=== PATIENT | female | born 1985 | race Caucasian/White ===

== ENCOUNTER 2025-10-05 18:52 | Emergency (ER) | payer SELFPAY ==
[2025-10-05 18:55] VITALS: BP 150/81; PULSE 104; RESP 18; TEMP 37.3; O2SAT 96; BMI 40.6
--- NOTE | 2025-10-05 19:01 | XRR_ITS ---
PROCEDURE INFORMATION: Exam: XR Chest Exam date and time: 10/05/2025 7:02 PM Age: 39 years old Clinical indication: Wheezing; Additional info: Wheezing, allergic rxn TECHNIQUE: Imaging protocol: Radiologic exam of the chest. Views: 1 view. COMPARISON: No relevant prior studies available. FINDINGS: Lungs: Unremarkable. No consolidation. Pleural spaces: Unremarkable. No pleural effusion. No pneumothorax. Heart/Mediastinum: Unremarkable. No cardiomegaly. Bones/joints: Unremarkable. XR/XR chest 1V portable [id number] IMPRESSION: No acute findings.
[2025-10-05] MEDS: diphenhydrAMINE 50 mg/mL SDV 1mL IM (19:06)
--- NOTE | 2025-10-05 19:43 | PC.NURSE ---
Pt is in custody of [facility]. Sent a syringe and needle with 0.3 mg of epinephrine with the derrick car operator in case of another allergic reaction happens before the long-term can belt picker the patient's prescription in the morning.
--- NOTE | 2025-10-06 00:29 | ED_ITS ---
HPI - Allergic Reaction General: Chief complaint: Allergic Reaction Stated complaint: Allergic reaction Time Seen by Provider: 10/05/25 18:58 Source: patient Mode of arrival: EMS Limitations: no limitations History of Present Illness: HPI narrative: Patient is a 39-year-old female presented emergency department from skilled nursing due to allergic reaction. States that she ate tomatoes, thinks that she is allergic and she started to have acute wheezing, sensation of throat closure, and tongue swelling. States that she has had anaphylaxis in the past and has required use of epinephrine pen, she did not use this today. EMS arrived at skilled nursing, states they gave her albuterol and this greatly improved her condition. Patient states that she still feels a little stridorous, and has some mild tongue swelling but overall feels a lot better and wants to go back to skilled nursing as she had a visit scheduled. She does not report any hives, abdominal pain, or nausea/vomiting. Minimally tachycardic at this time, blood pressure mildly elevated but otherwise no other signs of shock. Patient denies wanting epinephrine. MD complaint: allergic reaction Onset (ago): minute(s) Exposure: food Associated symptoms: Reports tongue swelling; Deny abdominal pain, nausea or vomiting Severity: similar to previous episodes Treatment prior to arrival: bronchodilator Previous Allergic Reaction History: anaphylaxis Related Data Previous Rx's ?Medication ?Instructions ?Recorded epinephrine 0.3 mg/0.3 mL 0.3 mg (0.3 mL) IM Q10M PRN 10/05/25 injection, auto-injector (EpiPen) anaphylaxis #1 ea Review of Systems General: Reports: 10 or more systems reviewed and unremarkable except in HPI and below Const: Denies: fever(s), chills or fatigue Eyes: Denies: change in vision ENMT: Denies: throat pain, ear or mastoid pain or nasal discharge Card: Denies: chest pain, palpitations, swelling of feet/ankles or lightheadedness Resp: Reports: wheezing and stridor; Denies: dyspnea or productive cough GI: Denies: abdominal pain, nausea, vomiting, diarrhea or constipation : Denies: flank pain, difficulty voiding, dysuria or urinary frequency Musc: Denies: neck pain, back pain or joint pain Skin/Breast: Denies: rash Neuro: Denies: headache(s), numbness in extremities or weakness in extremities All/Imm: Reports: throat swelling, tongue swelling and acute wheezing Physical Exam Const: COMMON NORMALS: no acute distress, patient oriented x3 and no limitations GENERAL APPEARANCE: cooperative, comfortable and well developed ORIENTATION/CONSCIOUSNESS: Yes awake, Yes oriented to person, Yes oriented to place and Yes oriented to time HENMT: COMMON NORMALS: normocephalic, atraumatic and hearing grossly normal bilaterally HEAD & SCALP: normocephalic and atraumatic OTHER: Mild tongue swelling, no posterior oropharyngeal swelling. Airway patent. Eye: COMMON NORMALS: Equal, round and reactive pupils present, EOMs intact bilaterally and conjunctivae normal CONJUNCTIVA: Yes conjunctivae normal PUPIL: Yes Equal, round and reactive pupils present Neck/C-Spine: COMMON NORMALS: full ROM, supple and no JVD Resp: COMMON NORMALS: normal respiratory effort, No retractions, No use of accessory muscles and clear to auscultation bilaterally AUSCULTATION: clear to auscultation bilaterally OTHER: Mild diffuse wheezing, no stridor. No active respiratory distress. Cardio: COMMON NORMALS: no JVD, regular rhythm, No clicks present (Cardio), No murmurs present (Cardio) and No rub (Cardio) RATE: tachycardic RHYTHM: regular rhythm GI: COMMON NORMALS: Normal to inspection, nondistended, normoactive bowel sounds present, Soft to palpation and non-tender AUSCULTATION: Yes normoactive bowel sounds PALPATION: Yes Soft to palpation RECTAL EXAM: deferred Extremity: COMMON NORMALS: normal to inspection, full ROM and capillary refill normal Neuro: COMMON NORMALS: patient oriented x3, moves all extremities, no focal motor deficits and no sensory deficits noted SENSORIUM/ORIENTATION: Yes oriented to person, Yes oriented to place and Yes oriented to time Skin: COMMON NORMALS: no rashes or lesions noted GENERAL SKIN EXAM: no rashes or lesions noted Course Vital Signs: Vital signs: Vital Signs Temperature 99.1 F 10/05/25 18:55 Pulse Rate 104 H 10/05/25 18:55 Respiratory Rate 18 10/05/25 18:55 Blood Pressure 150/81 10/05/25 18:55 Pulse Oximetry 96 10/05/25 18:55 Oxygen Delivery Me thod Room Air 10/05/25 18:55 MDM - Allergic Reaction Medical Decision Making Patient presented from skilled nursing by EMS for concerns of anaphylactic reaction, of which she has similar presentation. Her initial symptoms were tongue swelling, throat swelling, wheezing and stridor. She was given DuoNeb therapy prehospital, she states this greatly improved her condition, she still feels mildly stridorous with some tongue swelling but denied wanting epinephrine here despite her fitting criteria for epinephrine administration. She also denied a DuoNeb therapy. States that she feels better wants to go back to skilled nursing as she had a visit scheduled. Will be allowed discharge home and she is sent home with an EpiPen. Told to return immediately if she uses the EpiPen or has any worsening of condition. Lab Data Radiology Impressions Chest X-Ray 10/05/25 19:01 IMPRESSION: No acute findings. All radiology interpretation(s) finalized by discharge Discharge Plan Discharge Patient Disposition: Home Clinical Impression: Allergic reaction Condition: Stable Prescriptions: New epinephrine [EpiPen] 0.3 mg/0.3 mL auto-injector 0.3 mg IM Q10M PRN (Reason: anaphylaxis) Qty: 1 0RF Rx Instructions: for 2 doses Discharge Orders: Discharge ED (Routine); Ordered 10/05/25 Ordered By: Cole Lanier Patient Instructions: Patient Portal & Margarette Instructions Activity Restrictions/Additional Instructions: Anaphylaxis Discharge Instructions You had an allergic reaction today. Because of your history of severe allergic reactions (anaphylaxis), it is important to know how to stay safe and what to do if symptoms return. - EpiPen Prescription: A prescription for an EpiPen (epinephrine auto-injector) has been sent to your pharmacy. Always keep your EpiPen with you. Epinephrine is the first and most important medicine for severe allergic reactions. - When to Use Your EpiPen: Use your EpiPen right away if you have any of these symptoms: - Trouble breathing or swallowing - Swelling of your lips, tongue, or throat - Widespread hives or rash - Feeling faint or dizzy - Fast heartbeat If you use your EpiPen, call for emergency help ([id number]) immediately, even if you start to feel better. Sometimes, symptoms can come back (called a biphasic reaction). - Observation Period: You are being discharged before the usual observation time. Most people are watched for several hours after a reaction to make sure symptoms do not return. Because you are leaving early, it is very important to tell skilled nursing staff to watch for any new symptoms and to seek medical help right away if they occur. - Avoid Triggers: Try to avoid anything that may have caused your reaction today. Common triggers include certain foods, medicines, or insect stings. If you know what caused your reaction, let skilled nursing staff know so they can help you avoid it. - Other Medicines: You may be given antihistamines or steroids to help with mild symptoms, but these do not treat severe reactions. Only epinephrine can stop anaphylaxis. - Follow-Up: Schedule a follow-up appointment with a healthcare provider or product management intern to talk about your allergies and how to prevent future reactions. - Medical ID: If possible, wear a medical alert bracelet or carry a card that says you have a history of anaphylaxis. If you have any new symptoms or feel unwell, get medical help immediately. If you have questions about your EpiPen or allergies, ask your healthcare provider or skilled nursing medical staff. Print Language: Azeri Coding Level of Care Code ED Heating And Ventilating Drafter for Oliver King
== END 2025-10-05 19:48 | disposition home or self-care (01) ==
PROVIDERS: Emergency Provider Physician Assistant
DX: T78.40XA Allergy, unspecified, initial encounter (principal); X58.XXXA Exposure to other specified factors, initial encounter
CPT/HCPCS: 71045; 96372; 99284; J0169; J1200